=== PATIENT | female | born 1970 | race African-American/Black ===

== ENCOUNTER 2016-05-14 10:48 | Emergency (ER) | payer BC, OTHER ==
[~2016-05-14] VITALS: Ht 154.9 cm; Wt 62.6 kg
--- NOTE | ~2016-05-14 | EKG ---
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
[~2016-05-14 10:48] MED LIST: CIPROFLOXACIN500 M1 PO; NOHOMEMEDICATIONS; PROVENTIL HFA6.7 G1 INH; TESSALON PERLE100 MG PO
[2016-05-14] MEDS ORDERED: VITAMIN D2000 UNIT PO (11:16)
[2016-05-14] MEDS ORDERED: UNICOMPLEX M TA1 TA1 PO (11:16)
[2016-05-14] MEDS ORDERED: NAPROSYN500 MG PO (12:34)
[2016-05-14] MEDS ORDERED: TRAMADOL 50 MG50 MG PO (12:34)
[2016-05-14 12:49] VITALS: BP 121/69
== END 2016-05-14 12:50 | disposition home or self-care (01) ==
LOC: ER 10:48
DX: R09.1 Pleurisy (principal); K21.9 Gastro-esophageal reflux disease without esophagitis; Z88.1 Allergy status to other antibiotic agents